=== PATIENT | female | born 1960 | race Caucasian/White ===

== ENCOUNTER 2016-11-29 14:30 | Inpatient (IN) | payer OTHER ==
[~2016-11-29] VITALS: Ht 170.2 cm; Wt 96.0 kg
[2016-11-29 16:06] LABS: MCH 26.5 PG (29.0-34.0); MCHC 31.8 G/DL (30.0-36.0); MCV 83.5 FL (83-99); MEAN PLAT.VOLUME 9.6 uM^3 (9.5-12.4); PLATELET COUNT 346 K/uL (156-360); RBC DIS.WIDTH-CV 13.6 % (11.8-14.6); RBC DIS.WIDTH-SD 41.6 % (39-53); RED BLOOD COUNT 4.79 M/uL (3.80-5.20); WHITE BLOOD COUNT 13.2 K/uL (4.1-10.2)
[2016-11-29 16:14] LABS: CHLORIDE 100 mEq/L (99-109); POTASSIUM 2.9 mEq/L (3.7-5.4); SODIUM 138 mEq/L (136-147)
[2016-11-29 16:16] LABS: INTER. NORMALIZED RATIO 1.1; PROTHROMBIN TIME 11.4 (9.2-11.2); PTT 29.7 (25-32)
[2016-11-29 16:17] LABS: GLUCOSE 96 mg/dL (70-99)
[2016-11-29 16:18] LABS: ANION GAP 16 MEQ/L (2-14); TOTAL BILIRUBIN 0.5 mg/dL (0.0-1.0)
[2016-11-29 16:20] LABS: ALKALINE PHOSPHATASE 134 IU/L (3-129); GFR ESTIMATE (CALCULATED) 55 mL/min/
[2016-11-29 16:21] LABS: UREA NITROGEN (BUN) 19 mg/dL (9-23)
[2016-11-29 16:24] LABS: LIPASE 9 U/L (1.0-51.0)
[2016-11-29 16:29] LABS: QUANTITATIVE HCG 8.5 MIU/ML
[2016-11-29 16:31] LABS: ADD MIUA? YES; BILIRUBIN NEGATIVE; BLOOD NEGATIVE; COLOR YELLOW ((YELLOW)); GLUCOSE (STRIP) NEGATIVE; KETONES 20; LEUKOCYTES NEGATIVE; NITRITE NEGATIVE; PROTEIN (STRIP) 30; SPECIFIC GRAVITY 1.025 (1.000-1.030); UROBILINOGEN 0.2 MG/DL (0.2-1.0)
[2016-11-29 16:40] LABS: BACTERIA 1+ /HPF; EPITHELIAL CELLS 1+ /HPF; MUCUS 1+ /LPF; RED BLOOD CELLS NONE SEEN /HPF (0-5); UCUL ADDED? NO; WHITE BLOOD CELLS 0-5 /HPF (0-5)
[2016-11-29] MEDS ORDERED: PLAQUENIL200 MG PO (17:00)
[2016-11-29 20:46] VITALS: BP 123/73
[2016-11-29 23:24] VITALS: BP 113/68
[2016-11-30 07:23] LABS: BASOPHIL COUNT 0.1 K/uL (0-0.1); EOSINOPHIL (%) 1.3 % (0-5); EOSINOPHIL COUNT 0.2 K/uL (0-0.3); HEMATOCRIT 33.6 % (36.0-46.0); IMMATURE GRANULOCYTE (%) 3.9 % (0.0-0.7); IMMATURE GRANULOCYTE COUNT 0.5 K/uL; INSTRUMENT ABS NEUTROPHIL CT 8.6 K/uL; LYMPHOCYTE COUNT 1.3 K/uL (1.0-2.8); MCHC 31.3 G/DL (30.0-36.0); MCV 83.2 FL (83-99); MEAN PLAT.VOLUME 9.4 uM^3 (9.5-12.4); MONOCYTE (%) 15.2 % (3-12); MONOCYTE COUNT 1.9 K/uL (0-0.8); NEUTROPHIL (%) 68.5 % (45-76); NEUTROPHIL COUNT 8.6 K/uL (1.8-6.4); PLATELET COUNT 308 K/uL (156-360); RBC DIS.WIDTH-CV 13.6 % (11.8-14.6); RBC DIS.WIDTH-SD 41.4 % (39-53); RED BLOOD COUNT 4.04 M/uL (3.80-5.20); WHITE BLOOD COUNT 12.6 K/uL (4.1-10.2)
[2016-11-30 07:41] LABS: ANION GAP 11 MEQ/L (2-14); CHLORIDE 101 MEQ/L (99-109); GFR ESTIMATE (CALCULATED) > 59 mL/min/; GLUCOSE 97 mg/dL (70-99); MAGNESIUM 1.8 mg/dl (1.3-2.7); POTASSIUM 3.4 MEQ/L (3.7-5.4); SAMPLE HEMOLYSIS CHECK 0; SAMPLE ICTERIC CHECK 0; SAMPLE LIPEMIA CHECK 0; SODIUM 137 MEQ/L (136-147); TOTAL BILIRUBIN 0.6 MG/DL (0.0-1.0); UREA NITROGEN (BUN) 13 mg/dL (9-23)
[2016-11-30 07:43] LABS: ALKALINE PHOSPHATASE 97 IU/L (3-129)
[2016-11-30 08:58] VITALS: BP 126/60
[2016-11-30 12:10] VITALS: BP 120/72
[2016-11-30 16:19] VITALS: BP 133/79
[2016-11-30 22:55] VITALS: BP 116/66
[2016-12-01 09:24] VITALS: BP 125/73
[2016-12-01 11:02] LABS: EOSINOPHIL (%) 1.2 % (0-5); EOSINOPHIL COUNT 0.2 K/uL (0-0.3); HEMATOCRIT 33.6 % (36.0-46.0); IMMATURE GRANULOCYTE (%) 2.6 % (0.0-0.7); IMMATURE GRANULOCYTE COUNT 0.3 K/uL; LYMPHOCYTE COUNT 1.1 K/uL (1.0-2.8); MCH 26.2 PG (29.0-34.0); MCHC 31.5 G/DL (30.0-36.0); MCV 83.2 FL (83-99); MEAN PLAT.VOLUME 9.1 uM^3 (9.5-12.4); MONOCYTE (%) 10.2 % (3-12); MONOCYTE COUNT 1.3 K/uL (0-0.8); NEUTROPHIL (%) 76.9 % (45-76); PLATELET COUNT 374 K/uL (156-360); RBC DIS.WIDTH-CV 13.8 % (11.8-14.6); RBC DIS.WIDTH-SD 41.7 % (39-53); RED BLOOD COUNT 4.04 M/uL (3.80-5.20)
[2016-12-01] MEDS ORDERED: CIPRO500 MG PO (11:02)
[2016-12-01] MEDS ORDERED: METRONIDAZOLE500 MG PO (11:02)
[2016-12-01 11:11] LABS: CHLORIDE 104 mEq/L (99-109); POTASSIUM 2.9 mEq/L (3.7-5.4); SODIUM 140 mEq/L (136-147)
[2016-12-01 11:12] LABS: MAGNESIUM 1.5 mg/dL (1.3-2.7)
[2016-12-01 11:13] LABS: GLUCOSE 99 mg/dL (70-99)
[2016-12-01 11:15] LABS: ANION GAP 13 MEQ/L (2-14)
[2016-12-01 11:17] LABS: GFR ESTIMATE (CALCULATED) > 59 mL/min/
[2016-12-01 11:18] LABS: UREA NITROGEN (BUN) 7 mg/dL (9-23)
== END 2016-12-01 13:51 | disposition home or self-care (01) | DRG 392 ==
LOC: EME 14:30 → EDOF 16:43 → 5EAST 20:03
PROVIDERS: Emergency Medicine; Surgery
DX: K57.20 Diverticulitis of large intestine with perforation and abscess without bleeding (principal); N83.202 Unspecified ovarian cyst, left side; D72.829 Elevated white blood cell count, unspecified; M06.9 Rheumatoid arthritis, unspecified; Z87.891 Personal history of nicotine dependence
CPT/HCPCS: 36415; 75989; 80048; 80053; 81003; 83605; 83690; 83735; 84100; 84702; 85025; 85027; 85610; 85730; 86900; 86901; 87040; 87070; 87075; 87076; 87077; 87186; 87205; 93005; 99281; 99285; C1769; J0744; J1170; J1650; J3010; J7050; J7120; S0030